=== PATIENT | male | born 1990 ===

== ENCOUNTER 2020-05-23 11:05 | Outpatient (CLI) | payer BC, SELFPAY ==
--- NOTE | ~2020-05-23 | XR_ITS ---
EXAMINATION: XR chest 2V EXAM DATE: 05/23/2020 11:31 INDICATION: intermittent chest pain x6mo @ left upper chest TECHNIQUE: Frontal and lateral projections of the chest obtained and reviewed. There is no prior laly dy for comparison. FINDINGS: There is no focal air space disease. There are no pleural effusions. The cardiothymic jeanne houette is normal. There is no pneumothorax. There are no osseous or soft tissue abnormalities in t his skeletally immature patient. Lungs have normal volume. IMPRESSION: Unremarkable chest x-ray exam. Reviewed, dictated and finalized at location [facility].
== END 2020-05-23 11:06 | disposition home or self-care (01) ==
PROVIDERS: PCP Internal Medicine; Visit Provider Internal Medicine
DX: Z00.00 Encounter for general adult medical examination without abnormal findings (principal); M79.89 Other specified soft tissue disorders; R07.9 Chest pain, unspecified
CPT/HCPCS: 71046

== ENCOUNTER 2020-06-03 07:14 | Outpatient (CLI) | payer BC, SELFPAY ==
--- NOTE | ~2020-06-03 | CT_ITS ---
EXAMINATION: CT diagnostic chest w con DATE: 06/03/2020 07:50 INDICATION: Left chest pain. Hypercalcemia. TECHNIQUE: Computed tomography (CT) of the chest was performed with 75 cc Omnipaque 350 intravenous c ontrast. Automated exposure control and iterative reconstruction technique were employed. Exam dose: 242.67 mGy-cm total exam DLP. COMPARISON: 05/23/2020 2 view chest FINDINGS: The thyroid gland appears normal. No thoracic aortic aneurysm or dissection. No hilar or mediastinal mass lesion or lymphadenopathy. No rmal heart size. No pericardial or pleural effusion. Approximately 3.3 mm middle lobe nodule (series 4 image 60). There is focal posterior left suprahilar nodular appearing pulmonary infiltrate. There is a tight cluster of superior segment left lower lobe nodules ranging from 1.3 by 3.4 mm and 2 .5 x 2.6 mm up to 11.7 x 15 mm dimension. There is central calcification within the larger nodule. Th e findings are likely due to pulmonary granulomatous disease. [address] is recommended. Small sliding hiatal hernia. Normal morphology of the adrenal glands. Included skeletal structures are unremarkable other than dextroscoliosis of the thoracolumbar spine. IMPRESSION: Cluster of superior segment left lower lobe pulmonary nodules measuring up to 15 x 11.7 mm, with central calcification in this larger nodule. The findings are likely due to pulmonary granul omatous disease. Follow up CT examination in 6 months is recommended. Focal posterior left suprahilar infiltrate 3 mm middle lobe nodule Small sliding hiatal hernia Reviewed, dictated and finalized at [facility]. Reviewed, dictated and finalized at location A. IMPRESSION: Cluster of superior segment left lower lobe pulmonary nodules micheal uring up to 15 x 11.7 mm, with central calcification in this larger nodule. The findings are likely due to pulmonary granulomatous disease. Follow up [facility] exami [facility] in 6 months is recommended. Focal posterior left suprahilar infiltrate 3 mm middle lobe nodule Small sliding hiatal hernia
== END 2020-06-03 07:15 | disposition home or self-care (01) ==
LOC: CHSIMG 07:15
PROVIDERS: PCP Internal Medicine; Visit Provider Internal Medicine
DX: R07.9 Chest pain, unspecified (principal); E83.52 Hypercalcemia
CPT/HCPCS: 71260; Q9967